=== PATIENT | female | born 1965 | race American Indian/Alaskan Native ===

== ENCOUNTER 2021-08-15 11:20 | Outpatient (CLI) | payer OTHER ==
--- NOTE | 2021-08-16 08:53 | Mammography Report ---
DIGITAL SCREENING MAMMOGRAM WITH CAD, 08/15/2021 CLINICAL INFORMATION / INDICATION: Routine screening mammography. SCREENING MAMMO TECHNIQUE: Digital bilateral 2D mammography was obtained in the craniocaudal and mediolateral obliqu e projections. This examination was interpreted with the benefit of Computer-Aided Detection analysis . COMPARISON: None FINDINGS: Breast Density: There are scattered areas of fibroglandular density. No dominant mass, suspicious calcifications, or architectural distortion in either breast. A few scattered nodular densities are present on the right; however, there is a dominant nodule measu ring 7 mm, middle depth, located near the 9:00 position. IMPRESSION: Right breast findings as above. Follow up recommendation: Ultrasound BI-RADS Category 0: Incomplete. Needs additional imaging evaluation and/or prior mammograms for shaq white. A "normal" or negative report should not discourage follow up or biopsy of a clinically significant f inding. A written summary of these findings will be mailed to the patient. The patient will be entered into a mammography reporting system which will generate a reminder letter for the patient's next appointmen t at the appropriate interval. The [employer] recommends yearly mammograms starting at age 40 and continuing as l chele as a woman is in good health. Breast MRI is recommended for women with an approximate 20-25% or greater lifetime risk of breast cancer, including women with a strong family history of breast or ova julius cancer or who have been treated for Hodgkin's disease. Signer Name: Dmitry Whatley MD Signed: 08/16/2021 8:49 AM Workstation Name: [id number]
== END 2021-08-15 11:21 | disposition home or self-care (01) ==
LOC: SPVWC 11:20
PROVIDERS: ATTEND Internal Medicine
DX: Z12.31 Encounter for screening mammogram for malignant neoplasm of breast (principal); N64.89 Other specified disorders of breast
CPT/HCPCS: 77067

== ENCOUNTER 2021-08-30 13:14 | Outpatient (CLI) | payer OTHER ==
--- NOTE | 2021-08-30 15:21 | Ultrasound Report ---
ULTRASOUND BREAST RIGHT LIMITED, 08/30/2021 CLINICAL INFORMATION / INDICATION: Abn mammo. Patient presents as a callback from screening mammogram for further evaluation of a nodular density in the right breast. TECHNIQUE: Targeted ultrasound evaluation was performed of the area of interest. COMPARISON: Prior mammogram 08/15/2021 FINDINGS: Corresponding with the nodular density seen on recent mammogram, there is either a benign cyst or a b enign intramammary lymph node in the right breast 8:00 position located 8 cm from the nipple measurin g up to 7 x 2 x 4 mm. The lesion is parallel. No internal vascularity is demonstrated. No suspicious sonographic abnormality is identified. IMPRESSION: 1. A benign cyst versus benign intramammary lymph node accounts for the mammographic finding. No susp icious sonographic abnormality identified. Follow up recommendation: Routine yearly BI-RADS Category 2: Benign. A normal or "negative" report should not preclude biopsy or follow-up of a clinically suspicious find ing. Signer Name: Agnes Jaimes MD Signed: 08/30/2021 3:10 PM Workstation Name: [id number]
== END 2021-08-30 13:15 | disposition home or self-care (01) ==
LOC: SPVWC 13:14
PROVIDERS: ATTEND Internal Medicine
DX: N60.01 Solitary cyst of right breast (principal); R92.8 Other abnormal and inconclusive findings on diagnostic imaging of breast